=== PATIENT | female | born 1975 | race Caucasian/White ===

== ENCOUNTER 2017-11-07 10:52 | Emergency (ER) | payer SELFPAY ==
[2017-11-07] MEDS: traMADol 50 MG TABLET PO (12:39)
== END 2017-11-07 12:43 | disposition home or self-care (01) ==
LOC: ER 10:52
DX: J20.9 Acute bronchitis, unspecified (principal); J34.89 Other specified disorders of nose and nasal sinuses; Z87.891 Personal history of nicotine dependence
CPT/HCPCS: 99283